=== PATIENT | male | born 1990 | race Two or more races ===

== ENCOUNTER 2017-10-26 20:51 | Emergency (ER) | payer OTHER ==
[2017-10-26] MEDS ORDERED: DIPHTH,PERTUSS(ACELL),TET TOX 0.5 ML DISP.SYRIN. VAX IM ONE (21:00)
[2017-10-26] MEDS ORDERED: LIDOCAINE 2%/EPI 1:100,000 20 ML VIAL. IJ ONE (21:15)
--- NOTE | 2017-10-26 21:58 | PHYS DOC ---
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 He states the pain is controlled but he has had persistent oozing of blood since it happened at 5:30 PM. He denies numbness tingling weakness or radiating symptoms, he is been applying pressure however he keeps bleeding through each clean linen he uses to try to stop the bleeding. His tetanus is not up-to-date and he otherwise denies any complaints. No pulsatile bleeding. ED vital signs are stable Onset: this afternoon Severity: moderate Pain/Injury Location: right thigh Method of Injury: incised Modifying Factors: worse with jarring, worse with movement, improves with rest Allergies: Coded Allergies: No Known Drug Allergies (Unverified , 10/26/17) Past Medical History Medical History: no pertinent history Surgical History: no surgical history Social History Smoker: non-smoker Alcohol: none Drugs: none Review of Systems Constitutional: denies chills, denies diaphoresis, denies fever Respiratory: denies cough, denies shortness of breath Cardiovascular: denies chest pain, denies palpitations Gastrointestinal: denies nausea, denies vomiting Musculoskeletal: see HPI Skin: see HPI Psychiatric/Neurological: see HPI Physical Exam General Appearance: WD/WN, no apparent distress Neck: non-tender, supple Cardiovascular/Respiratory: normal peripheral pulses, no respiratory distress Back: no CVA tenderness, no vertebral tenderness Legs: right leg other (3 cm laceration above the right knee, it is into the fatty tissue there is persistent oozing been no pulsatile bleeding no foreign bodies or contused tissue.) Neurologic/Tendon: normal sensation, normal motor functions, normal tendon functions, responds to pain, no evidence tendon injury Psychiatric: alert, oriented x 3 Skin: warm/dry Laceration/Wound Repair Laceration/Wound Repair : Wound Location: lower extremity Wound's Depth, Shape: superficial, linear Wound Length (cm): 3 Wound Explored: clean Betadine Prep?: No Anesthesia: Lidocaine w/ Epi Volume Anesthetic (ccs): 8 Wound Debrided: minimal Wound Repaired With: sutures (11 amador) Number of Sutures: 11 Layer Closure?: No Sterile Dressing Applied?: Yes Splint Applied?: No Progress Panamanian to Macedonian translation via patient's friend who brought him. Informed consent obtained. Pressure was applied from the time the patient arrived until wound closure took place. The wound was bleeding persistently and for the last few hours and due to the rate of bleeding had essentially irrigated itself. Lidocaine with epinephrine with analgesia, wound was irrigated with normal saline and wound edges were approximated using 11 amador. Hemostasis was achieved a sterile dressing was applied and wound care instructions were discussed C departure instructions. Patient tolerated it well no complications. Orders, Labs, Meds I discussed time off and Worker's Compensation. Signs and symptoms to monitor as well as indications for urgent return to the department were discussed. Patient received tetanus and I also discussed empiric antibiotics. Patient's questions were answered and he expressed agreement and understanding with treatment plan. Departure Time of Disposition: 21:59 Disposition: HOME, SELF-CARE Diagnosis: work comp right leg laceration Condition: IMPROVED Patient Instructions: Staple Wound Closure, [id number], VIS, Tetanus, Diphtheria (Td); Tetanus, Diphtheria, Pertussis (Tdap) - CDC Additional Instructions: Keep wound covered with sterile dressing until completely healed. Wash wound twice daily with soap and warm water, blot dry. Change dressing after each wash. Allow the wound to air dry 1 hour daily. Off work through October night, note given. Avoid alcohol intake and ibuprofen to decrease the risk of bleeding. Elevate right leg and stay off of it as much as possible for at least the next 48 hours. Remember you can tear the amador out by bending your right knee. [id number] Tylenol for baseline discomfort. A Tylenol #3 start pack has been dispensed to you tonight, take one every 6 hours as needed for severe pain tonight. Take with food. Prescription: Clindamycin Follow-up with your employer regarding Worker's Compensation status. Follow-up with a doctor or return to the emergency department in 10-14 days for wound check and possible staple removal. Return to ED with new or changing symptoms. ELBA ALEMAN DO Oct 26, 2017 21:58
[2017-10-26 22:00] VITALS: BP 128/70
[2017-10-26] MEDS ORDERED: CLINDAMYCIN HCL 150 MG CAPSULE PO ONE (22:00)
[2017-10-26] MEDS ORDERED: ACETAMINOPHEN/CODEINE 300/30MG 4TABLET STARTPACK. PO ONE (22:00)
[2017-10-26] MEDS ORDERED: CLIN300C8 PO (22:04)
== END 2017-10-26 22:15 | disposition home or self-care (01) ==
LOC: ER 20:51
DX: S81.811A Laceration without foreign body, right lower leg, initial encounter (principal); W26.0XXA Contact with knife, initial encounter; Y93.89 Activity, other specified; Y99.8 Other external cause status; Y92.89 Other specified places as the place of occurrence of the external cause
CPT/HCPCS: 12002; 90471; 90715; 99283-25

== ENCOUNTER 2017-11-07 17:33 | Emergency (ER) | payer OTHER ==
[~2017-11-07 17:33] MED LIST: CLIN300C8 PO
--- NOTE | 2017-11-07 17:38 | ED.ADGEN ---
Past History Past Medical History: No Pertinent History Past Surgical History: No Surgical History Alcohol Use: None Drug Use: None Adult General Chief Complaint Chief Complaint " I here to get hiwot out..." HPI HPI Patient is a 27 year old male who presents with above hx and staple placement 2 weeks ago to right thigh. Hiwot removed. There is still some dehiscent wound. Distal neurovascular intact. No history immunosuppression. Patient was instructed to use Polysporin 4 times a day until it heals. Patient told to expect some scarring. Review of Systems Review of Systems Constitutional: Denies fever or chills [] Eyes: Denies change in visual acuity, redness, or eye pain [] HENT: Denies nasal congestion or sore throat [] Respiratory: Denies cough or shortness of breath [] Cardiovascular: No additional information not addressed in HPI [] GI: Denies abdominal pain, nausea, vomiting, bloody stools or diarrhea [] : Denies dysuria or hematuria [] Musculoskeletal: Denies back pain or joint pain [] Integument: Denies rash or skin lesions []patient presents for staple removal Neurologic: Denies headache, focal weakness or sensory changes [] Endocrine: Denies polyuria or polydipsia [] All other systems were reviewed and found to be within normal limits, except as documented in this note. Family History Family History Noncontributory Current Medications Current Medications Current Medications Medications (Trade) Dose Ordered Sig/Sangeetha Start Time Stop Time Status Last Admin Dose Admin Bacitracin/ Polymyxin B Sulfate (Polysporin) 1 maynor 1X ONCE 11/07/17 18:30 11/07/17 18:31 DC 11/07/17 18:30 1 MAYNOR Allergies Allergies Allergies Coded Allergies Type Severity Reaction Last Updated Verified No Known Drug Allergies 10/26/17 No Physical Exam Physical Exam Constitutional: Well developed, well nourished, no acute distress, non-toxic appearance. [] HENT: Normocephalic, atraumatic, bilateral external ears normal, oropharynx moist, no oral exudates, nose normal. [] Eyes: PERRLA, EOMI, conjunctiva normal, no discharge. [] Neck: Normal range of motion, no tenderness, supple, no stridor. [] Cardiovascular:Heart rate regular rhythm, no murmur [] Lungs & Thorax: Bilateral breath sounds clear to auscultation [] Abdomen: Bowel sounds normal, soft, no tenderness, no masses, no pulsatile masses. [] Skin: Warm, dry, no erythema, no rash. [] Laceration as per history of present illness. 2 cm right thigh some dehiscence Back: No tenderness, no CVA tenderness. [] Extremities: No tenderness, no cyanosis, no clubbing, ROM intact, no edema. [] Neurologic: Alert and oriented X 3, normal motor function, normal sensory function, no focal deficits noted. [] Psychologic: Affect normal, judgement normal, mood normal. [] Current Patient Data Vital Signs Vital Signs Date Time Temp Pulse Resp B/P (MAP) Pulse Ox O2 Delivery O2 Flow Rate FiO2 11/07/17 17:50 67 18 98 Room Air EKG EKG [] Radiology/Procedures Radiology/Procedures [] Course & Med Decision Making Course & Med Decision Making Pertinent Labs and Imaging studies reviewed. (See chart for details). Pt. apply Polysporin 4 times a day until completely healed. Follow-up primary care [] Final Impression Final Impression 1. Hiwot- removed 2. Mild dehiscence[] Problems: Dragon Disclaimer Dragon Disclaimer This electronic medical record was generated, in whole or in part, using a voice recognition dictation system. MARIANO GONZALES MD Nov 07, 2017 17:38
[2017-11-07 17:50] VITALS: BP 134/59
[2017-11-07] MEDS: BACITRACIN/POLYMYXIN B TOPICAL OINT 15GM TUBE. TP ONE (18:30)
== END 2017-11-07 18:49 | disposition home or self-care (01) ==
LOC: ER 17:33
DX: T81.33XD Disruption of traumatic injury wound repair, subsequent encounter (principal)
CPT/HCPCS: 99282